=== PATIENT | female | born 1990 | race American Indian/Alaskan Native ===

== ENCOUNTER 2018-02-23 23:47 | Emergency (ER) | payer MEDICAID ==
[2018-02-24 00:06] VITALS: BP 101/67
--- NOTE | 2018-02-24 01:17 | Emergency Department Report ---
HPI - General Chief Complaint: Seizure Time Seen by Provider: 02/24/18 00:19 - HPI HPI: Room 26 The patient is a 27-year-old female presenting with a chief complaint of chest pain and seizure. This evening at approximately 20:00 the patient began complaining of shortness of breath and chest pain. The patient states her significant other walked her outside but then she went limp. The significant other helped the patient to the ground where he states she was unresponsive. He does state the patient began shaking all over and this lasted approximately 4 minutes. The patient was postictal for approximately 10 minutes and then again responded. Patient currently complains of chest pain and headache. The patient states her chest pain as an 8/10 and her headache is a 10/10. The patient is amnestic to the above events. The patient states she is approximately 15 weeks Location: [See above] Duration: [See above] Quality: [See above] Severity: [See above] Modifying factors: [see above] Context: [see above] Mode of transportation: [not driving] ED Past Medical Hx - Past Medical History Previous Medical History?: Yes Hx Seizures: Yes (during (2 in 3rd trimester)) Additional medical history: dvt 2yrs ago - Surgical History Additional Surgical History: c section - Family History Family history: no significant - Social History Smoking Status: Current Every Day Smoker (cigars) Substance Use Type: None (denies illicit drug use) - Medications Home Medications: Home Medications Medication Instructions Recorded Confirmed Last Taken Type HYDROcodone/APAP 10-325 [[place] 1 each PO Q6HR PRN #20 tablet 02/01/14 Unknown Rx 10/325] Mag Hydrox/Aluminum Hyd/Simeth 15 ml PO QID PRN #1 bottle 02/01/14 Unknown Rx [Maalox Advanced Suspension] Omeprazole [Prilosec] 20 mg PO QDAY #30 capsule.dr 02/01/14 Unknown Rx Promethazine [Phenergan] 25 mg PO Q6H PRN #20 tablet 02/01/14 Unknown Rx ED Review of Systems ROS: Stated complaint: SEIZURE Other details as noted in HPI Constitutional: no symptoms reported Eyes: denies: eye pain ENT: denies: throat pain Respiratory: shortness of breath Cardiovascular: chest pain Endocrine: no symptoms reported Gastrointestinal: denies: abdominal pain Genitourinary: denies: dysuria Musculoskeletal: denies: back pain Neurological: headache, other (seizure) Physical Exam - Physical Exam Vital Signs: Vital Signs 02/23/18 02/24/18 23:59 00:09 Temperature 98.6 F Pulse Rate 85 Respiratory 16 16 Rate Blood Pressure 101/67 O2 Sat by Pulse 100 100 Oximetry Physical Exam: GENERAL: The patient is well-developed well-nourished female sitting on stretcher not appearing to be in acute distress. [] HEENT: Normocephalic. Atraumatic. Extraocular motions are intact. Patient has moist mucous membranes. NECK: Supple. Trachea midline CHEST/LUNGS: Clear to auscultation. There is no respiratory distress noted. HEART/CARDIOVASCULAR: Regular. There is no tachycardia. There is no gallop rub or murmur. ABDOMEN: Abdomen is soft, nontender. Patient has normal bowel sounds. There is no abdominal distention. SKIN: There is no rash. There is no edema. There is no diaphoresis. NEURO: The patient is awake, alert, and oriented. The patient is cooperative. The patient has no focal neurologic deficits. The patient has normal speech. Cranial nerves II through XII grossly intact, no drift MUSCULOSKELETAL: There is no evidence of acute injury. ED Course Vital Signs 02/23/18 02/24/18 23:59 00:09 Temperature 98.6 F Pulse Rate 85 Respiratory 16 16 Rate Blood Pressure 101/67 O2 Sat by Pulse 100 100 Oximetry ED Medical Decision Making - EKG Data -: EKG Interpreted by Me (EKG performed by EMS) EKG shows normal: sinus rhythm - EKG Data When compared to previous EKG there are: previous EKG unavailable Interpretation: normal EKG - Medical Decision Making I discussed with the patient and significant other at length my concern for presentation. I expressed concern for potential PE given her presentation. The patient states she no longer wishes to wait in the emergency department for further evaluation and she will follow with her primary physician in the morning. I explained that if her presentation is secondary to PE that it could be fatal and she might not make it to her primary physician's office. The patient and significant other verbalized understanding state they still wished to leave the hospital AGAINST MEDICAL ADVICE. Patient and significant other verbalized understanding of increased morbidity and/or mortality should she leave the hospital without evaluation. The patient was advised to return to the emergency department immediately for reevaluation should she change her mind - Differential Diagnosis PE, ACS, seizure, pericarditis Critical care attestation.: If time is entered above; I have spent that time in minutes in the direct care of this critically ill patient, excluding procedure time. ED Disposition Clinical Impression: Chest pain, Seizure, Headache Disposition: LEFT AGAINST MED ADVICE Is pt being admited?: No Does the pt Need Aspirin: No Condition: Undetermined Instructions: Chest Pain (ED) Referrals: PRIMARY CARE, [Primary Care Provider] - 3-5 Days Time of Disposition: 01:13 (patient leaving AMA)
== END 2018-02-24 01:10 | disposition left against medical advice (07) ==
LOC: ED 23:47
DX: O99.353 Diseases of the nervous system complicating pregnancy, third trimester (principal); O99.333 Smoking (tobacco) complicating pregnancy, third trimester; R07.89 Other chest pain; Z3A.00 Weeks of gestation of pregnancy not specified
CPT/HCPCS: 99284